=== PATIENT | male | born 1970 | race Caucasian/White ===

== ENCOUNTER 2022-11-30 06:24 | Emergency (ER) | payer MEDICAID, SELFPAY ==
[2022-11-30 06:35] VITALS: BP 159/98; PULSE 87; RESP 20; TEMP 36.8; O2SAT 99
[2022-11-30] MEDS: Clindamycin 300 MG CAP PO (06:48)
--- NOTE | 2022-11-30 06:50 | ED.GENADUL_ITS ---
Discharge Plan Disposition Patient Disposition: Home Condition: Stable Discharge Details Clinical Impression: Cellulitis Primary Care Provider: Fan Felder ED Provider: Salvador Quintero Home Meds and New Rx's Prescriptions: New clindamycin HCl 300 mg capsule 300 mg PO TID 5 Days Qty: 15 0RF No Action simvastatin 40 mg tablet Patient Comments: TAKE 1 TABLET BY MOUTH DAILY lisinopril-hydrochlorothiazide 10-12.5 mg tablet Patient Comments: take 1 tablet by mouth once daily ketamine 100 mg Hudson 100 mg SUBLINGUAL Rx Instructions: q 1 month Discharge Instructions Instructions: Cellulitis (ED) Additional Instructions: Please take medication as prescribed. Please follow-up with your primary care physician. Return to the emergency department for any worsening symptoms Medical Decision Making 51-year-old male history of picking, history of MRSA, presents with indurated erythematous area of skin on right anterior lateral chest wall with central papular lesion, skin lesion consistent with cellulitis versus bug bite no evidence of erythema migrans. Left eye irritation consistent with excoriation likely result from picking. Conjunctiva is normal no drainage. Given patient's history of MRSA we will treat empirically with clindamycin. Home care instructions return precautions given. HPI General Date/Time Provider Initiated Documentation: 11/30/22 06:44 . HPI Narrative: 51-year-old male history of trauma resulting in picking tick, also history of MRSA presents with indurated red skin right chest wall over the past day, also irritation to left eye. Has been increasingly picking this season. Related Data Home Medications Medication Instructions Recorded Confirmed clindamycin HCl 300 mg capsule 300 mg PO TID 5 days #15 caps 11/30/22 ketamine 100 mg sublingual hudson 100 mg sublingual 11/30/22 lisinopril 10 tab 11/30/22 11/30/22 mg-hydrochlorothiazide 12.5 mg tablet simvastatin 40 mg tablet mg 11/30/22 11/30/22 Previous Rx's Medication Instructions Recorded clindamycin HCl 300 mg capsule 300 mg PO TID 5 days #15 caps 11/30/22 Allergies Allergy/AdvReac Type Severity Reaction Status Date / Time acetaminophen [From Percocet] Allergy Other (See Unverified 11/30/22 06:45 Comment) oxycodone [From Percocet] Allergy Other (See Unverified 11/30/22 06:45 Comment) General Stated Complaint: RashLesion HERNANDEZ: 4 Review of Systems Narrative: Review of Systems Constitutional: negative Eyes: Eye irritation ENT: negative Cardiovascular: negative Respiratory: negative Gastrointestinal: negative : negative Musculoskeletal: negative Skin: Skin infection Neurologic: negative Psych: negative PFSH All Active Problems (Updated 11/30/22 @ 06:54 by Salvador Quintero MD) Cellulitis (Acute) Social History Smoking/Tobacco Use Status: Never Smoking risk assessment performed?: Yes Substance use type: marijuana Do you feel safe at home: Yes Do you feel safe in your relationship?: Yes Exam Narrative Exam Narrative: Physical Examination General: alert, awake, cooperative, resting comfortably, no acute distress HEENT: normocephalic, atraumatic; PERRL, EOM intact, conjunctiva normal; slight erythema and excoriation of upper lid medial aspect; no nasal discharge; moist mucous membranes, oral and pharyngeal mucosa normal, tolerating secretions Neck: supple, trachea midline; full ROM Chest: normal to inspection Respiratory: normal respiratory effort, speaking in full sentences, clear to auscultation, no wheezing, rales or rhonchi Cardiac: regular rate, regular rhythm, S1S2 intact, no murmurs rubs or gallops GI: abdomen soft, non-tender, non-distended; no palpable mass or hepatosplenomegaly Skin: Erythematous indurated area of skin to right anterior lateral chest wall with central papular lesion, nonfluctuant, no crepitus Neuro: AAOx3, normal speech, moving all extremities Psych: Appropriate mood and affect Course Vital Signs Vital signs: Vital Signs Temperature 36.8 C 11/30/22 06:35 Pulse 87 11/30/22 06:35 Respiratory Rate 20 11/30/22 06:35 Blood Pressure 159/98 H 11/30/22 06:35 Pulse Oximetry 99 11/30/22 06:35 Temperature 36.8 C 11/30/22 06:35 Pulse 87 11/30/22 06:35 Respiratory Rate 20 11/30/22 06:35 Respiratory Effort Normal 11/30/22 06:40 Blood Pressure 159/98 H 11/30/22 06:35 Blood Pressure Position Sitting 11/30/22 06:35 Pulse Oximetry 99 11/30/22 06:35 Oxygen Delivery Method Room Air 11/30/22 06:35 Oxygen Flow Rate 0 11/30/22 06:35
--- NOTE | 2022-12-02 12:05 | NUR.NOTE ---
Nursing Note: [facility] asked that this provider note be faxed to their [place] office; attn. Dr. Ellis. F [phone]
== END 2022-11-30 06:59 | disposition home or self-care (01) ==
LOC: ER 07:12
PROVIDERS: Emergency Provider Emergency Medicine
DX: L03.313 Cellulitis of chest wall (principal); H11.32 Conjunctival hemorrhage, left eye
CPT/HCPCS: 99283; 99284